=== PATIENT | male | born 1985 | race Caucasian/White ===

== ENCOUNTER 2018-12-18 21:59 | Emergency (ER) | payer SELFPAY ==
--- NOTE | 2018-12-18 22:09 | Emergency Department Record ---
History of Present Illness - General Stated Complaint: INJURY TO LT ARM Time Seen by Provider: 12/18/18 22:04 Source: Patient Mode of Arrival: Ambulatory Limitations: No limitations - History of Present Illness Initial Comments: 33 yo male presents to ED for evaluation of swelling and pain to the left forearm following work-related injury last night. Patient reports that his arm was "pinched by a tractor trailer" resulting in pain and swelling over the left forearm. Patient reports FROM on examination, denies numbness, tingling, or weakness distal to the injury. Patient also denies injury proximal to the left forearm. Patient denies health problems at his baseline. MD Complaint: Injury to:: Left, Forearm Onset/Timin -: Hour(s) Other Extremity Injury: Forearm: Left Other Injuries: None Handedness: Left Place: Work Improves With: None Worsens With: Other (Palpation) Associated Symptoms: Denies other symptoms - Related Data Home Medications Medication Instructions Recorded Confirmed Last Taken No Home Med [NO HOME MEDS] 12/18/18 12/18/18 Unknown Allergies Allergy/AdvReac Type Severity Reaction Status Date / Time No Known Drug Allergies Allergy Verified 12/18/18 22:23 Review of Systems Constitutional: Denies: Chills, Fever, Malaise, Night sweats Eyes: Denies: Eye discharge, Eye pain ENT: Denies: Congestion, Ear pain, Epistaxis Respiratory: Denies: Cough, Dyspnea Cardiovascular: Denies: Chest pain, Dyspnea on exertion Endocrine: Denies: Fatigue, Heat or cold intolerance Gastrointestinal: Denies: Abdominal pain, Nausea, Vomiting Genitourinary: Denies: Incontinence, Retention Musculoskeletal: Reports: Arthralgia. Denies: Back pain, Gout, Joint swelling Skin: Denies: Bruising, Change in color Neurological: Denies: Abnormal gait, Confusion, Headache, Seizure Psychiatric: Denies: Anxiety Hematological/Lymphatic: Denies: Anemia, Blood Clots Physical Exam - General General Appearance: Alert, Oriented x3, Cooperative, Mild distress Limitations: No limitations - Head Head exam: Atraumatic, Normocephalic, Normal inspection Head exam detail: negative: Abrasion, Contusion, Brito's sign, General tenderness, Hematoma, Laceration - Eye Eye exam: Normal appearance. negative: Conjunctival injection, Periorbital swelling, Periorbital tenderness, Scleral icterus - ENT Ear exam: negative: Auricular hematoma, Auricular trauma Nasal Exam: negative: Active bleeding, Discharge, Dried blood, Foreign body Mouth exam: negative: Drooling, Laceration, Muffled voice, Tongue elevation - Neck Neck exam: Normal inspection. negative: Meningismus, Tenderness - Respiratory Respiratory exam: Normal lung sounds bilaterally. negative: Rales, Respiratory distress, Rhonchi, Stridor - Cardiovascular Cardiovascular Exam: Regular rate, Normal rhythm, Normal heart sounds Peripheral Pulses: 3+: Radial (L) - GI/Abdominal GI/Abdominal exam: Soft. negative: Rebound, Rigid, Tenderness - Rectal Rectal exam: Deferred - exam: Deferred - Extremities Extremities exam: Tenderness, Other (Mild TTP and STS over the left distal forearm, strong distal radial pulse on examination, FROM of the wrist/hand/elbow without pain on examination. Compartments of the left forearm are soft on examination.). negative: Calf tenderness, Pedal edema - Back Back exam: Denies: CVA tenderness (R), CVA tenderness (L) - Neurological Neurological exam: Alert, Normal gait, Oriented X3 - Psychiatric Psychiatric exam: Normal affect, Normal mood - Skin Skin exam: Normal color. negative: Abrasion Type of lesion: negative: abrasion Course - Reevaluation(s) Reevaluation #1: 12/18/18 22:42 Left forearm: Negative for fracture Patient was updated on his radiograph result Counseled re: symptomatic treatment for his symptoms Patient appears stable for discharge at this time. Disposition Disposition: Discharge Clinical Impression: Contusion of left forearm, initial encounter Disposition: Home, Self-Care Condition: (2) Stable Instructions: Contusion in Adults (ED) Additional Instructions: Return to ED if your symptoms worsen or if you have any concerns. Ice, Ibuprofen as directed. Follow-up with your family doctor in 3-5 days as directed. Time of Disposition: 22:43 Quality - Quality Measures Quality Measures: N/A - Blood Pressure Screening Does Patient Have Any of the Following: No Blood Pressure Classification: Normal BP Reading Systolic Measurement: 115 Diastolic Measurement: 72 Screening for High Blood Pressure: < Normal BP, F/U Not Required > [G8783]
--- NOTE | 2018-12-22 12:13 | RADIOLOGY REPORT ---
STUDY: Left forearm. CLINICAL HISTORY: Distal forearm pain status post injury. TECHNIQUE: AP and lateral views of the left forearm were obtained. COMPARISON: None. FINDINGS: There is localized soft tissue swelling along the dorsal aspect of the distal forearm. There is no associated foreign body or soft tissue air. The bones appear intact. IMPRESSION: 1. Soft tissue swelling distally. 2. No acute fracture or foreign body. MTDD
== END 2018-12-18 23:00 | disposition home or self-care (01) ==
LOC: ER 21:59
DX: S50.12XA Contusion of left forearm, initial encounter (principal); W23.1XXA Caught, crushed, jammed, or pinched between stationary objects, initial encounter; Y99.0 Civilian activity done for income or pay
CPT/HCPCS: 99283